=== PATIENT | female | born 1995 | race African-American/Black ===

== ENCOUNTER 2017-03-23 11:17 | Emergency (ER) | payer OTHER ==
[2017-03-23 11:22] VITALS: BP 144/64; BMI 45.4
[2017-03-23 11:51] LABS: BILIRUBIN,URINE NEGATIVE (NEGATIVE); BLOOD/HEMOGLOBIN,URINE NEGATIVE (NEGATIVE); GLUCOSE, URINE NEGATIVE (NEGATIVE); KETONES,URINE NEGATIVE (NEGATIVE); LEUKOCYTE ESTERASE ,URINE 1+ (NEGATIVE); NITRITES,URINE NEGATIVE (NEGATIVE); PROTEIN,URINE 1+ (NEGATIVE); UROBILINOGEN,URINE 2+ (NORMAL)
[2017-03-23 12:30] LABS: APPEARANCE,URINE HAZY (CLEAR); BACTERIA,URINE 1+ /HPF (NEGATIVE); COLOR,URINE YELLOW (YELLOW); RBC,URINE RARE /HPF (NEGATIVE); SQUAMOUS EPITHELIAL CELL,UR MANY /HPF (NEGATIVE)
[2017-03-23 12:31] LABS: AMORPHOUS SEDIMENT,UR 1+ /HPF (NEGATIVE); MUCUS,URINE MODERATE /HPF (NEGATIVE)
== END 2017-03-23 12:47 | disposition home or self-care (01) ==
LOC: ER 11:29
DX: R10.84 Generalized abdominal pain (principal); Z3A.29 29 weeks gestation of pregnancy
CPT/HCPCS: 81001; 99284

== ENCOUNTER 2017-06-19 13:52 | Emergency (ER) | payer OTHER ==
[2017-06-19 13:56] VITALS: BP 115/64; BMI 45.1
--- NOTE | 2017-06-19 14:27 | DR.GENAD ---
HPI - PCP Primary Care Physician: JASPER - HPI Comment HPI Comment: SWELLING AND PAIN INCREASING. PATIENT HAVE LOW GRADE FEVER. NO DRAINAGE. - Complaint/Symptoms Chief Complaint Doctors Comments: SWELLING, REDNESS AND PAIN INNER RT ARM NEAR AXILLA TIMES TWO DAYS. Chief Complaint:: PT. C/O BUMP TO UPPER RIGHT ARM. SHE STATES IT CAME UP 2 DAYS AGO BUT KEEPS GETTING BIGGER, NO ACTIVE DRAINAGE. AREA IS SWOLLEN AND FEVERED. - Nurses notes reviewed Nurses Notes Review: Yes - Source History Provided: Patient - Mode of Arrival Mode of Arrival: Ambulatory - Timing Onset of Chief Complaint: 06/17/17 Came on: Suddenly - Duration Duration: Constant Duration: Days - Severity Severity: Moderate PMH - PMH Past Medical History: No Past Surgical History: Yes Surgical History: - Family History History of Family Medical Conditions: No - Social History Does patient currently use any type of tobacco product: No Have you used tobacco products in the last 12 months: No Type of Tobacco Use: None Does any household member use tobacco: No Alcohol Use: None Do you use any recreational Drugs:: No Lives With: Alone Lives Where: Home - infectious screening In the last 2 months have you had wt loss of >10#?: NO Have you had fever, night sweats or hemotysis?: No Have you traveled outside the country in the last 6 months?: No Isolation: Standard ROS - Review of Systems Constitutional: Fever Eyes: No Symptoms Reported ENTM: No Symptoms Reported Respiratoy: No Symptoms Reported Cardiovascular: No Symptoms Reported Gastrointestinal/Abdominal: No Symptoms Reported Genitourinary: No Symptoms Reported Neurological: No Symptoms Reported Musculoskeletal: Right, Arm Integumentary: Change in Color, Lesions (SWELLING AND PAIN INNER UPPER ARM.) Hematologic/Lymphatic: No Symptoms Reported Endocrine: No Symptoms Reported All Other Systems: Reviewed and Negative PE - Vital Signs Vitals: Temperature 99.6 F Pulse Rate 118 Respiratory Rate 18 Blood Pressure 115/64 O2 Sat by Pulse Oximetry 96 - General Limitations: No Limitations General Appearance: Alert - Head Head Exam: Normal Inspection - Eyes Eye exam: Normal Appearance - ENT ENT Exam: Normal External Ear Exam External Ear Exam: Normal External Inspection TM/Canal Exam: Bilateral Normal Nose Exam: Normal Nose Exam Mouth Exam: Normal Inspection Throat Exam: Normal Inspection - Neck Neck Exam: Trachea Midline - Chest Chest Inspection: Symmetric Chest Wall Rise - Respiratory Respiratory Exam: Normal Lung Sounds Bilat Respiratory Exam: Bilateral Clear to Auscultation - Cardiovascular Cardiovascular Exam: Regular Rate, Normal Rhythm, Normal Heart Sounds - Abdominal Exam Abdominal Exam: Normal Inspection - Extremities Extremities Exam: Tenderness (RT INNER UPPER ARM NEAR AXILLA WITH SWELLING AND REDNESS.) - Back Back Exam: Normal Inspection - Neurologic Neurological Exam: Alert, Oriented X3 - Psychiatric Psychiatric Exam: Normal Affect, Normal Mood - Skin Skin Exam: Erythema MDM - Differential Diagnosis Differential Diagnosis: CELLULITIS RT AXILLA/ARM Course - Treatment Treatment: SEE ORDERS. - Education/Counseling Education/Counseling: Patient, Education Educated On: Diagnosis, Needs for Follow Up - Diagnosis Discharge Problem: Cellulitis Qualifiers: Site of cellulitis: extremity Site of cellulitis of extremity: axilla Laterality: right Qualified Code(s): L03.111 - Cellulitis of right axilla - Discharge Plan Disposition: HOME, SELF-CARE Condition: Stable Prescriptions: Clindamycin HCl 150 mg PO Q6H #40 cap Ibuprofen [MOTRIN TAB 600 MG *] 600 mg PO TID PRN #20 tab PRN Reason: Pain/Inflammation - Follow ups/Referrals Follow ups/Referrals: Luis Felipe Alarcon [Primary Care Provider] - 1 day Ravi Lai [STAFF PHYSICIAN] - 1 day - Instructions Instructions: Cellulitis, Adult, [id number] Additional Instructions: RETURN TO ED IF WORSE.
== END 2017-06-19 14:39 | disposition home or self-care (01) ==
LOC: ER 14:00
DX: L03.111 Cellulitis of right axilla (principal)
CPT/HCPCS: 99281; 99282